=== PATIENT | male | born 1995 | race Caucasian/White ===

== ENCOUNTER 2023-12-18 18:04 | Emergency (ER) | payer SELFPAY ==
[2023-12-18 18:11] VITALS: BP 144/75; PULSE 86; RESP 20; TEMP 98.2; BMI 41.5
[2023-12-18] MEDS ORDERED: ONDANSETRON 4 MG/2 ML VIAL ONE (20:26)
[2023-12-18] MEDS ORDERED: PANTOPRAZOLE SODIUM 40 MG VIAL ONE (20:26)
[2023-12-18] MEDS: SODIUM CHLORIDE 0.9% 500 ML INFUS.BAG IV ONE (20:37)
[2023-12-18] MEDS: PANTOPRAZOLE SODIUM 40 MG VIAL IVPUSH ONE (20:37)
[2023-12-18] MEDS: ONDANSETRON 4 MG/2 ML VIAL IVPUSH ONE (20:37)
[2023-12-18 20:38] LABS: BASO % 0.5 % (0-2.0); EOS % 3.1 % (0-4.5); HEMATOCRIT 43.5 % (35.4-49); HEMOGLOBIN 14.5 GM/dL (11.7-16.9); LYMPH % 26.6 % (8-40); MCH 29.8 pg (25.7-33.7); MCHC 33.3 g/dl (32.0-35.9); MEAN CELL VOLUME 89.2 fl (80-96); MEAN PLT VOLUME 9.4 fl (7.5-11.1); MONO % 4.8 % (3.8-10.2); PLATELET COUNT 212 10^3/uL (134-434); RBC 4.88 M/mm3 (4.00-5.60); RDW 14.2 % (11.9-15.9); WHITE BLOOD COUNT 9.9 K/mm3 (4.0-10.0)
[2023-12-18 20:57] LABS: POTASSIUM 4.3 mmol/L (3.5-5.1)
[2023-12-18 20:59] LABS: CALCIUM 8.8 mg/dL (8.5-10.1)
[2023-12-18 21:00] LABS: ALBUMIN 3.8 g/dl (3.4-5.0); BLOOD UREA NITROGEN 11.6 mg/dL (7-18)
[2023-12-18 21:03] LABS: CREATININE 0.8 mg/dL (0.55-1.3)
[2023-12-18 21:05] LABS: BILIRUBIN,TOTAL 0.6 mg/dL (0.2-1); TOT PROT 7.1 g/dl (6.4-8.2)
[2023-12-18] MEDS ORDERED: MAG HYDROX/AL HYDROX/SIMETH 30 ML UNIT-DOSE CUP ONE (21:11)
[2023-12-18] MEDS ORDERED: FAMOTIDINE 20 MG TABLET ONE (21:11)
[2023-12-18] MEDS ORDERED: ACETAMINOPHEN 500 MG TABLET (FP) ONE (21:11)
[2023-12-18] MEDS: FAMOTIDINE 20 MG TABLET PO ONE (21:14)
[2023-12-18] MEDS: ACETAMINOPHEN 500 MG TABLET (FP) PO ONE (21:14)
[2023-12-18] MEDS: MAG HYDROX/AL HYDROX/SIMETH -MYLANTA- ORAL SUSPENSION PO ONE (21:14)
== END 2023-12-18 23:02 | disposition home or self-care (01) ==
LOC: JER 18:04
PROC: 3E033GC Introduction of Other Therapeutic Substance into Peripheral Vein, Percutaneous Approach (ICD-10-PCS; principal; 2023-12-18)
PROC: 3E033GC Introduction of Other Therapeutic Substance into Peripheral Vein, Percutaneous Approach (ICD-10-PCS; 2023-12-18)
DX: R11.10 Vomiting, unspecified (principal); R19.7 Diarrhea, unspecified; R10.9 Unspecified abdominal pain; K52.9 Noninfective gastroenteritis and colitis, unspecified; Z20.822 Contact with and (suspected) exposure to COVID-19
CPT/HCPCS: 0241U-QW; 36415; 80053; 85025; 86850; 86900; 86901; 99284-25